=== PATIENT | female | born 1990 | race Caucasian/White ===

== ENCOUNTER → 2017-12-07 | Day surgery (SDC) | payer OTHER ==
--- NOTE | 2017-12-07 15:51 | RADIOLOGY REPORT (SQ) ---
EXAM DESCRIPTION: ARTHRO SHOULDER INJECTION; FLUORO/NEEDLE PLACEMENT COMPLETED DATE/TIME: 12/07/2017 3:38 pm REASON FOR STUDY: RECURRENT DISLOCATION RIGHT SHOULDER (M24.411) M24.411 RECURRENT DISLOCATION, RIG HT SHOULDER COMPARISON: None. FLUOROSCOPY TIME: 0.2 minutes 1 images saved to PACS. LIMITATIONS: None. PROCEDURE: Procedure, risks, benefits and alternatives explained to patient who then gave written co nsent. The right shoulder was marked and a time out was called for correct procedure verification. P osterior entry site marked using fluoroscopic guidance. Shoulder prepped and draped using sterile te chnique. Local anesthesia achieved using 1% lidocaine injection. Hypodermic needle introduced into the joint space under direct fluoroscopic visualization. Non-ionic contrast instilled to confirm intr a-articular position. Dilute gadolinium solution then injected. Needle removed and entry site covere d with sterile bandage. No immediate complications noted. TECHNIQUE: Digital images acquired during fluoroscopy and stored on PACS. Patient immediately take n to the MR suite for additional imaging. INJECTION LOCATION: Posterior right shoulder. CONTRAST TYPE AND AMOUNT: 1 cc Isovue 10 cc Prohance/Saline mixture. IMPRESSION: SUCCESSFUL NEEDLE PLACEMENT AND INJECTION FOR RIGHT SHOULDER MR ARTHROGRAM USING POSTERI OR APPROACH. COMMENT: Quality ID 145: Final reports for procedures using fluoroscopy that document radiation exp osure indices, or exposure time and number of fluorographic images (if radiation exposure indices are not available) TECHNICAL DOCUMENTATION: JOB ID: [id number] [employer]- All Rights Reserved Reading location - IP/workstation name: [email or web address]
--- NOTE | 2017-12-07 15:51 | RADIOLOGY REPORT (SQ) ---
EXAM DESCRIPTION: ARTHRO SHOULDER INJECTION; FLUORO/NEEDLE PLACEMENT COMPLETED DATE/TIME: 12/07/2017 3:38 pm REASON FOR STUDY: RECURRENT DISLOCATION RIGHT SHOULDER (M24.411) M24.411 RECURRENT DISLOCATION, RIG HT SHOULDER COMPARISON: None. FLUOROSCOPY TIME: 0.2 minutes 1 images saved to PACS. LIMITATIONS: None. PROCEDURE: Procedure, risks, benefits and alternatives explained to patient who then gave written co nsent. The right shoulder was marked and a time out was called for correct procedure verification. P osterior entry site marked using fluoroscopic guidance. Shoulder prepped and draped using sterile te chnique. Local anesthesia achieved using 1% lidocaine injection. Hypodermic needle introduced into the joint space under direct fluoroscopic visualization. Non-ionic contrast instilled to confirm intr a-articular position. Dilute gadolinium solution then injected. Needle removed and entry site covere d with sterile bandage. No immediate complications noted. TECHNIQUE: Digital images acquired during fluoroscopy and stored on PACS. Patient immediately take n to the MR suite for additional imaging. INJECTION LOCATION: Posterior right shoulder. CONTRAST TYPE AND AMOUNT: 1 cc Isovue 10 cc Prohance/Saline mixture. IMPRESSION: SUCCESSFUL NEEDLE PLACEMENT AND INJECTION FOR RIGHT SHOULDER MR ARTHROGRAM USING POSTERI OR APPROACH. COMMENT: Quality ID 145: Final reports for procedures using fluoroscopy that document radiation exp osure indices, or exposure time and number of fluorographic images (if radiation exposure indices are not available) TECHNICAL DOCUMENTATION: JOB ID: [id number] [employer]- All Rights Reserved Reading location - IP/workstation name: [email or web address]
== END ==
LOC: RAD 14:17
PROVIDERS: ATTEND Orthopaedic Surgery Sports Medicine
DX: M24.411 Recurrent dislocation, right shoulder (principal)
CPT/HCPCS: 23350; 77002

== ENCOUNTER → 2017-12-21 | Day surgery (SDC) | payer OTHER ==
--- NOTE | 2017-12-21 11:02 | RADIOLOGY REPORT (SQ) ---
EXAM DESCRIPTION: FLUORO/NEEDLE PLACEMENT; ARTHRO SHOULDER INJECTION COMPLETED DATE/TIME: 12/21/2017 10:24 am REASON FOR STUDY: RT SHOULDER PAIN, RECURRENT DISLOCATION M25.511 PAIN IN RIGHT SHOULDER M24.411 R ECURRENT DISLOCATION, RIGHT SHOULDER COMPARISON: 12/07/2017 FLUOROSCOPY TIME: 11 seconds 1 digital radiographic images saved to PACS. LIMITATIONS: None. PROCEDURE: Procedure, risks, benefits and alternative explained to patient who then gave written con sent. The posterior right shoulder was marked and a time-out was called for correct marking verifica tion. Posterior entry site marked using fluoroscopic guidance. Shoulder prepped and draped using st erile technique. Local anesthesia achieved using 6 mL 1% lidocaine injection. 22 gauge spinal needle introduced into the joint space under direct fluoroscopic visualization. Non-ionic contrast instill ed to confirm intra-articular position. Additional dilute non-ionic contrast instilled. Needle gregory ivis and entry site covered with sterile bandage. No immediate complications noted. TECHNIQUE: Digital images acquired during fluoroscopy and stored on PACS. Patient immediately take n to the CT suite for additional imaging. INJECTION LOCATION: Right posterior glenohumeral joint CONTRAST TYPE AND AMOUNT: 1 mL of Isovue 300 was injected to confirm intra-articular needle placement followed by 9 mL of dilute Isovue-[address] arthrogram IMPRESSION: SUCCESSFUL NEEDLE PLACEMENT AND INJECTION FOR RIGHT SHOULDER CT ARTHROGRAM USING POSTERI OR APPROACH. COMMENT: Patient underwent arthrogram 12/07/2017. She was unable to tolerate MRI, because of a recen t eyebrow tattoos which became hot in the magnet. Quality ID 145: Final reports for procedures using fluoroscopy that document radiation exposure laureano good, or exposure time and number of fluorographic images (if radiation exposure indices are not avail able) TECHNICAL DOCUMENTATION: JOB ID: [id number] [employer]- All Rights Reserved Reading location - IP/workstation name: [email or web address]
--- NOTE | 2017-12-21 11:02 | RADIOLOGY REPORT (SQ) ---
EXAM DESCRIPTION: FLUORO/NEEDLE PLACEMENT; ARTHRO SHOULDER INJECTION COMPLETED DATE/TIME: 12/21/2017 10:24 am REASON FOR STUDY: RT SHOULDER PAIN, RECURRENT DISLOCATION M25.511 PAIN IN RIGHT SHOULDER M24.411 R ECURRENT DISLOCATION, RIGHT SHOULDER COMPARISON: 12/07/2017 FLUOROSCOPY TIME: 11 seconds 1 digital radiographic images saved to PACS. LIMITATIONS: None. PROCEDURE: Procedure, risks, benefits and alternative explained to patient who then gave written con sent. The posterior right shoulder was marked and a time-out was called for correct marking verifica tion. Posterior entry site marked using fluoroscopic guidance. Shoulder prepped and draped using st erile technique. Local anesthesia achieved using 6 mL 1% lidocaine injection. 22 gauge spinal needle introduced into the joint space under direct fluoroscopic visualization. Non-ionic contrast instill ed to confirm intra-articular position. Additional dilute non-ionic contrast instilled. Needle gregory ivis and entry site covered with sterile bandage. No immediate complications noted. TECHNIQUE: Digital images acquired during fluoroscopy and stored on PACS. Patient immediately take n to the CT suite for additional imaging. INJECTION LOCATION: Right posterior glenohumeral joint CONTRAST TYPE AND AMOUNT: 1 mL of Isovue 300 was injected to confirm intra-articular needle placement followed by 9 mL of dilute Isovue-[address] arthrogram IMPRESSION: SUCCESSFUL NEEDLE PLACEMENT AND INJECTION FOR RIGHT SHOULDER CT ARTHROGRAM USING POSTERI OR APPROACH. COMMENT: Patient underwent arthrogram 12/07/2017. She was unable to tolerate MRI, because of a recen t eyebrow tattoos which became hot in the magnet. Quality ID 145: Final reports for procedures using fluoroscopy that document radiation exposure laureano good, or exposure time and number of fluorographic images (if radiation exposure indices are not avail able) TECHNICAL DOCUMENTATION: JOB ID: [id number] [employer]- All Rights Reserved Reading location - IP/workstation name: [email or web address]
--- NOTE | 2017-12-21 11:29 | RADIOLOGY REPORT (SQ) ---
EXAM DESCRIPTION: CT RT UPPER EXTREMITY WITH COMPLETED DATE/TIME: 12/21/2017 10:38 am REASON FOR STUDY: RT SHOULDER PAIN, RECURRENT DISLOCATION M25.511 PAIN IN RIGHT SHOULDER M24.411 R ECURRENT DISLOCATION, RIGHT SHOULDER COMPARISON: Arthrogram same date TECHNIQUE: [facility] with reformatted oblique coronal and ob lique sagittal imaging windowed for bone and soft tissues. All CT scanners at this facility use dose modulation, iterative reconstruction, and/or weight based d osing when appropriate to reduce radiation dose to as low as reasonably achievable (ALARA). [facility]: Dose Right [facility]: CareDose [facility]: Dose Right [facility]: Teradose 4D [facility]: Sensory Networks RADIATION DOSE: CT Rad equipment meets quality standard of care and radiation dose reduction techniq ues were employed. CTDIvol: 14.9 mGy. DLP: 359 mGy-cm. mGy. LIMITATIONS: None. FINDINGS: SOFT TISSUES: No masses or adenopathy BONY ARCHITECTURE: Normal bone density. 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 No bony Bankart deformity GLENOHUMERAL JOINT: Normal alignment. No chondromalacia or bulky bony spurring ACROMION AND AC JOINT: Type 1 acromion with mild narrowing of the subacromial space. ROTATOR CUFF: Intact. No leakage of contrast into the subacromial/ subdeltoid bursa GLENOID, LABRUM AND BICEPS: Superior labral tear at the long head biceps tendon insertion, extending anteriorly. OTHER: No bony Bankart lesion. There is some elevation or stripping of the joint capsule off the ant eroinferior glenoid labrum on axial image 35 IMPRESSION: Remote prior right shoulder dislocation. Superior labral tear extending anteriorly TECHNICAL DOCUMENTATION: JOB ID: [id number] Quality ID # [id number]: Final reports with documentation of one or more dose reduction techniques (e.g., Au tomated exposure control, adjustment of the mA and/or kV according to patient size, use of iterative reconstruction technique) 2010 [employer]- All Rights Reserved Reading location - IP/workstation name: [facility]-RR
== END ==
LOC: RAD 09:35
PROVIDERS: ATTEND Orthopaedic Surgery Sports Medicine
DX: M25.511 Pain in right shoulder (principal); M24.411 Recurrent dislocation, right shoulder
CPT/HCPCS: 23350; 77002